=== PATIENT | male | born 1990 | race Caucasian/White ===

== ENCOUNTER 2021-04-26 02:31 | Emergency (ER) | payer OTHER ==
[~2021-04-26] VITALS: Ht 162.6 cm; Wt 64.0 kg
--- NOTE | 2021-04-26 02:45 | NUR ---
INITIAL PT CONTACT. PT PRESENTS TO ED C/O SUICIDAL IDEATION. PT REPORTS TAKING 4-5 OTC SLEEP AIDS, ETOH AND MARIJUNA TODAY. PT REPORTS INCREASED STRESS AT WORK, "I AM JUST HAVING A HARD TIME AND REALLY STRESSED WITH WORK AND THINGS IN LIFE." PT SUPINE ON GURNEY, NADN, DROWSY. ALL PT BELONGINGS REMOVED AND PLACED IN APPROPRIATE LOCKER. SAFETY ESPINOZA DOWN AND SITTER WITHIN LINE OF SIGHT. PT DENIES ANY NEEDS AT THIS TIME. ERP AT BEDSIDE. WILL CONTINUE TO MONITOR
[2021-04-26 03:35] LABS: BASOPHILS % (AUTO) 1 % (0-1); EOSINOPHILS % (AUTO) 1 % (1-7); LYMPHOCYTES % (AUTO) 33 % (22-44); MEAN CORPUSCULAR HEMOGLOBIN 30.5 pg (27.5-34.5); MEAN CORPUSCULAR HGB CONC 35.4 g/dL (33.2-36.2); MONOCYTES % (AUTO) 7 % (2-9); NEUTROPHILS % (AUTO) 58 % (42-75); PLATELET COUNT 359 x10^3/uL (130-400); RED CELL DISTRIBUTION WIDTH 12.7 % (9.4-14.8)
[2021-04-26 03:47] LABS: ALANINE AMINOTRANSFERASE 57 U/L (12-78); ALBUMIN 3.7 g/dL (3.4-5.0); ANION GAP 7 mmol/L (5-15); CALCIUM 8.7 mg/dL (8.5-10.1); CHLORIDE 107 mmol/L (98-107); CREATININE 1.03 mg/dL (0.7-1.3)
[2021-04-26 03:49] LABS: ALKALINE PHOSPHATASE 130 U/L (45-117); BILIRUBIN,TOTAL 0.2 mg/dL (0.2-1.0); TOTAL PROTEIN 8.1 g/dL (6.4-8.2)
[2021-04-26 03:55] LABS: SALICYLATE LEVEL < 1.7 mg/dL (2.8-20.0)
--- NOTE | 2021-04-26 05:11 | NUR ---
PT RESTING CALMLY ON ALVAREZ COUGHLIN. SAFETY PRECAUTIONS IN PLACE, SITTER REMAINS IN VIEW. NO NEEDS AT THIS TIME. PT UNABLE TO PROVIDE URINE SAMPLE AT THIS TIME.
[2021-04-26 06:13] LABS: AMPHETAMINE SCREEN, URINE Negative (Negative); BARBITURATE SCREEN, URINE Negative (Negative); BENZODIAZEPINE SCREEN, URINE Negative (Negative); CANNABINOID SCREEN, URINE Positive (Negative); COCAINE SCREEN, URINE Negative (Negative); METHADONE SCREEN, URINE Negative (Negative); OPIATE SCREEN, URINE Negative (Negative)
--- NOTE | 2021-04-26 07:03 | NUR ---
BEDSIDE REPORT TO ORLIN HARPER
--- NOTE | 2021-04-26 07:06 | NUR ---
RECEIVED BEDSIDE REPORT FROM RUBINA HARPER, PLAN OF CARE DISCUSSED.
--- NOTE | 2021-04-26 07:11 | NUR ---
PT SLEEPING RESP EVEN AND UNLABORED.
--- NOTE | 2021-04-26 09:09 | NUR ---
PT EATING BREAKFAST DENIES SI AT THIS TIME
[2021-04-26 09:23] VITALS: BP 112/60
--- NOTE | 2021-04-26 10:27 | NUR ---
PT VISITING WITH GIRLFRIEND, VERBALZIED NO NEEDS AT THIS TIME
[2021-04-26] MEDS ORDERED: FLUO10CA13 PO (12:11)
[2021-04-26] MEDS ORDERED: RISP0.5T24 PO (12:11)
--- NOTE | 2021-04-26 12:58 | NUR ---
Patient/Caregiver given discharge instructions and they have confirmed that they understand the instructions. Patient ambulatory with steady gait.
== END 2021-04-26 13:00 | disposition home or self-care (01) ==
LOC: ED 12:47
DX: R45.851 Suicidal ideations (principal); F10.120 Alcohol abuse with intoxication, uncomplicated; F32.9 Major depressive disorder, single episode, unspecified; F41.9 Anxiety disorder, unspecified; Z91.14 Patient's other noncompliance with medication regimen; Y90.0 Blood alcohol level of less than 20 mg/100 ml
CPT/HCPCS: 36415; 80053; 80299; 80307; 80320; 80329; 85025; 99283; G0480